=== PATIENT | female | born 1960 | race Caucasian/White ===

== ENCOUNTER → 2017-03-04 | Outpatient (CLI) | payer BC, OTHER ==
[~2017-03-04] MED LIST: BACTRIM DS TAB1 EACH PO; ENDOCET 5-3251 EACH; HYDROCODON-ACE1 EAC5 PO; KEFLEX500 MG PO; PRILOSEC 20 MG20 MG PO
== END ==
LOC: BC 10:57
DX: Z12.31 Encounter for screening mammogram for malignant neoplasm of breast (principal)

== ENCOUNTER → 2019-05-31 | Outpatient (CLI) | payer BC, OTHER | LOC: RAD 12:09 | DX: Z12.31 Encounter for screening mammogram for malignant neoplasm of breast (principal) ==

== ENCOUNTER → 2020-03-22 | Outpatient (CLI) | payer BC, OTHER | LOC: BC 10:09 → ULTRA 13:24 → BC 13:24 | PROVIDERS: ATTEND Specialist | DX: N64.4 Mastodynia (principal) ==

== ENCOUNTER → 2021-03-30 | Outpatient (CLI) | payer BC, OTHER | LOC: BC 10:03 | PROVIDERS: ATTEND Family Medicine | DX: Z12.31 Encounter for screening mammogram for malignant neoplasm of breast (principal) ==